=== PATIENT | female | born 1980 | race Asian ===

== ENCOUNTER 2017-10-10 09:24 | Outpatient (CLI) | payer OTHER ==
--- NOTE | 2017-10-11 10:15 | Mammography Report ---
Bilateral mammogram: No previous studies available. CAD study utilized. Findings: Bilateral heterogeneous breast parenchyma. Focal 3 mm asymmetry outer posterior right breast and 7 mm asymmetry in anterior left breast. 5 mm focal dense asymmetry posterior right and left breast seen on MLO view along the line of nipple. 2 small 8mm focal asymmetry is at the right axilla. No definite microcalcification. Impression: Multiple focal dense asymmetries. Recommend spot mag, and if necessary, sonographic examination. BI-RADS CATEGORY: 0 = Needs additional imaging evaluation ACR BI-RADS MAMMOGRAPHIC CODES: 0 = Needs additional imaging evaluation; 1 = Negative; 2 = Benign; 3 = Probably benign; 4 = Suspicious; 5 = Malignant; 6 = Known biopsy-proven malignancy COMMENT: 1. Dense breast tissue, i.e., adenosis, fibrocystic changes, etc., may obscure an underlying neoplasm. 2. Approximately 10% of cancers are not detected with mammography. 3. A negative mammography report should not delay biopsy if a clinically suspicious mass is present. COMMENT: Patient follow-up letters are generated in [employer].
== END 2017-10-10 09:25 | disposition home or self-care (01) ==
LOC: MAMMO 09:24
PROVIDERS: ATTEND Internal Medicine
DX: Z12.31 Encounter for screening mammogram for malignant neoplasm of breast (principal)
CPT/HCPCS: 77067

== ENCOUNTER 2019-10-25 08:52 | Outpatient (CLI) | payer OTHER ==
--- NOTE | 2019-10-25 11:27 | Mammography Report ---
DIGITAL SCREENING MAMMOGRAM WITH CAD, 10/25/2019 INDICATION: Routine screening mammography. TECHNIQUE: Digital bilateral 2D mammography was obtained in the craniocaudal and mediolateral obliq ue projections. This examination was interpreted with the benefit of Computer-Aided Detection analysi s. COMPARISON: 10/10/2017 FINDINGS: Breast Density: The breasts are heterogeneously dense, which may obscure small masses. There is no evidence of dominant mass, suspicious calcifications or architectural distortion in eithe r breast. IMPRESSION: No mammographic evidence of malignancy. Follow up recommendation: Routine yearly BI-RADS Category 1: Negative. A "normal" or negative report should not discourage follow up or biopsy of a clinically significant f inding. A written summary of these findings will be mailed to the patient. The patient will be entered into a mammography reporting system which will generate a reminder letter for the patient's next appointmen t at the appropriate interval. [employer] recommends yearly mammograms starting at age 40 and continuing as l shona as a woman is in good health. Breast MRI is recommended for women with an approximate 20-25% or greater lifetime risk of breast cancer, including women with a strong family history of breast or ova jasbir cancer or who have been treated for Hodgkin's disease. Signer Name: Evan Balbuena MD Signed: 10/25/2019 11:23 AM Workstation Name: [id number]
== END 2019-10-25 08:53 | disposition home or self-care (01) ==
LOC: MAMMO 08:52
PROVIDERS: ATTEND Family Medicine
DX: Z12.31 Encounter for screening mammogram for malignant neoplasm of breast (principal)
CPT/HCPCS: 77067